=== PATIENT | female | born 1970 | race Caucasian/White ===

== ENCOUNTER 2018-08-20 14:49 | Emergency (ER) | payer SELFPAY ==
[~2018-08-20] VITALS: Ht 157.5 cm; Wt 59.4 kg
[2018-08-20 14:55] VITALS: BP 142/82
--- NOTE | 2018-08-20 15:13 | NUR ---
PT AMBULATED TO BED 8
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
[2018-08-20 15:54] LABS: BASOPHILS % (AUTO) 0.6 % (0.0-2.0); EOSINOPHILS # (AUTO) 0.1 K/uL (0-0.4); EOSINOPHILS % (AUTO) 2.1 % (0.0-4.0); HEMATOCRIT 34.4 % (36-48); LYMPHOCYTES # (AUTO) 1.3 K/uL (2.5-16.5); MEAN CORPUSCULAR HEMOGLOBIN 26 pg (27-31); MEAN CORPUSCULAR HGB CONC 32 g/dL (33-37); MEAN CORPUSCULAR VOLUME 79.9 fL (80-94); MONOCYTES # (AUTO) 0.6 K/uL (0.8-1.0); MONOCYTES % (AUTO) 8.9 % (1.7-9.3); NEUTROPHILS # (AUTO) 4.3 K/uL (1.8-7.7); NEUTROPHILS % (AUTO) 68.4 % (42.2-75.2); PLATELET COUNT (AUTO) 493 K/uL (140-450); RED CELL DISTRIBUTION WIDTH 16.1 % (11.6-13.7); WHITE BLOOD COUNT (AUTO) 6.3 K/uL (4.8-10.8)
[2018-08-20 16:16] LABS: ANION GAP 15.5 (8-16); CARBON DIOXIDE 24.9 mmol/L (21-32); CHLORIDE 102 mmol/L (98-107); CREATININE 0.8 mg/dL (0.6-1.3); GFR ARICAN-AMERICAN 99 mL/min (>90); GLUCOSE 97 mg/dL (74-106); POTASSIUM 3.4 mmol/L (3.5-5.1); SODIUM SERUM 139 mmol/L (136-145); UREA NITROGEN, BLOOD 7 mg/dL (7-18)
[2018-08-20 16:23] LABS: ALBUMIN 3.5 g/dL (3.4-5.0); ASPARTATE AMINOTRANSFERASE 23 U/L (15-37); TOTAL BILIRUBIN 0.4 mg/dL (0.0-1.0)
[2018-08-20 16:24] LABS: BILIRUBIN,URINE 2+ (NEGATIVE); BLOOD, URINE 1+ (NEGATIVE); COLOR,URINE YELLOW (YELLOW); LEUKOCYTE ESTERASE ,URINE TRACE (NEGATIVE); NITRITE, URINE NEGATIVE (NEGATIVE); UGLUCOSE NEGATIVE (NEGATIVE)
[2018-08-20 16:25] LABS: SALICYLATE < 2.8 mg/dL (2.8-20.0)
[2018-08-20 16:25] LABS: APPEARANCE,URINE HAZY (CLEAR)
[2018-08-20 16:26] LABS: ACETAMINOPHEN < 0.5 ug/ml (10-30)
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
[2018-08-20 16:56] LABS: BARBITURATE, URINE NEG. ng/ml (NEG <=200); BENZODIAZEPINE, URINE NEG. ng/mL (NEG <=200); CANNABINOID, URINE NEG. ng/mL (NEG <=50); COCAINE, URINE NEG. ng/mL (NEG <=300); OPIATE, URINE NEG. ng/mL (NEG <=2000); PHENCYCLIDINE SCREEN,URINE NEG. ng/mL (NEG <=25)
--- NOTE | 2018-08-20 17:40 | NUR ---
TELEPSYCH TALKING WITH PATIENT NOW
--- NOTE | 2018-08-20 19:07 | NUR ---
REPORT GIVEN TO SAVANNAH CUEVAS, TRANSFER OF CARE AT THIS TIME
--- NOTE | 2018-08-20 19:07 | NUR ---
ASSUMED CARE OF PT FROM MASON ARZATE
--- NOTE | 2018-08-20 19:10 | NUR ---
DR. WHITEHEAD CLEARED PATIENT OF 5150 AT THIS TIME. EDMD AWARE.
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
--- NOTE | 2018-08-20 19:53 | NUR ---
Dr. Donaldson evaluating patient at bedside.
[2018-08-20 20:20] VITALS: BP 134/67
--- NOTE | 2018-08-20 20:20 | NUR ---
Patient given written and verbal discharge instructions and verbalizes understanding. Given copies of tests performed during visit. Patient is awake, alert and oriented. Ambulatory with steady gait. Given list of available shelters in surrounding areas.
== END 2018-08-20 20:20 | disposition home or self-care (01) ==
LOC: MED 14:49
DX: R45.851 Suicidal ideations (principal); L02.811 Cutaneous abscess of head [any part, except face]
CPT/HCPCS: 36415; 80053; 80305; 81001; 85025; 87086; 99283; G0480; G0482

== ENCOUNTER 2019-02-10 13:40 | Emergency (ER) | payer SELFPAY ==
[~2019-02-10] VITALS: Ht 144.8 cm; Wt 53.7 kg
[2019-02-10 13:47] VITALS: BP 122/74
--- NOTE | 2019-02-10 14:06 | NUR ---
PT AMBULATED TO BED 03.
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
[2019-02-10 14:53] LABS: APPEARANCE,URINE CLEAR (CLEAR); BILIRUBIN,URINE NEGATIVE (NEGATIVE); BLOOD, URINE NEGATIVE (NEGATIVE); COLOR,URINE YELLOW (YELLOW); LEUKOCYTE ESTERASE ,URINE TRACE (NEGATIVE); NITRITE, URINE NEGATIVE (NEGATIVE); UGLUCOSE NEGATIVE (NEGATIVE)
[2019-02-10 15:02] LABS: RBC,URINE 0 /HPF (0-5); WBC,URINE 0-5 /HPF (0-5)
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
[2019-02-10] MEDS ORDERED: AZITHROMYCIN 250 MG TAB PO ONE (15:30)
[2019-02-10] MEDS ORDERED: metroNIDAZOLE 500 MG TAB PO ONE (15:30)
[2019-02-10] MEDS ORDERED: cefTRIAXone 250 MG in LIDOCAINE MPF 1% - 5 mL VIAL 0.9 ML IM ONE (15:30)
--- NOTE | 2019-02-10 16:17 | NUR ---
Patient discharged with v/s stable. Written and verbal after care instructions given and explained. Patient alert, oriented and verbalized understanding of instructions. Ambulatory with steady gait. All questions addressed prior to discharge. ID band removed. Patient advised to follow up with PMD. Rx of doxycycline, anusol given. Patient educated on indication of medication including possible reaction and side effects. Opportunity to ask questions provided and answered.
[2019-02-10 16:18] VITALS: BP 136/74
[2019-02-12 06:07] LABS: CHLAMYDIA TRACHOMATIS AMP DNA Negative (Negative)
== END 2019-02-10 16:17 | disposition home or self-care (01) ==
LOC: MED 13:40
DX: A59.01 Trichomonal vulvovaginitis (principal); N39.0 Urinary tract infection, site not specified; K64.4 Residual hemorrhoidal skin tags; F17.210 Nicotine dependence, cigarettes, uncomplicated; Z11.3 Encounter for screening for infections with a predominantly sexual mode of transmission
CPT/HCPCS: 36415; 81001; 81025; 87210; 87491; 96372; 99283; J0696; J2001